=== PATIENT | female | born 2000 | race Caucasian/White ===

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

== ENCOUNTER 2021-09-09 05:56 | Emergency (ER) | payer OTHER, SELFPAY ==
--- NOTE | ~2021-09-09 | XR_ITS ---
EXAMINATION: XR lumbar spine 2-3V DATE: 09/09/2021 07:32 INDICATION: Nontraumatic low back pain. TECHNIQUE: 3 views of lumbar spine were obtained. COMPARISON: None. FINDINGS: Bone alignment is normal. Vertebral body heights and intervertebral disc heights are normal . The facet joints are normal. IMPRESSION: 1. Normal lumbar spine. Reviewed, dictated and finalized at location A. [employer] IMPRESSION: 1. Normal lumbar spine.
[2021-09-09 05:57] VITALS: BP 144/89; PULSE 115; RESP 16; TEMP 36.3; O2SAT 100
[2021-09-09 06:42] VITALS: BP 130/76; PULSE 88; RESP 14; TEMP 36.3; O2SAT 100
--- NOTE | 2021-09-09 08:15 | ED.BACK ---
HPI - Back Pain/Injury General Chief Complaint: Back Pain/Injury Stated Complaint: lower back pain Time Seen by Provider: 09/09/21 07:03 History of Present Illness HPI Narrative: Patient is a 21-year-old female who presents ER with low back pain. Began 2 nights ago while at work. Its in the lumbar region and will move laterally to the paraspinal musculature. It is aching in nature. No saddle anesthesia. Reports last bowel movement yesterday and last urination was couple hours ago. No known trauma. No fevers or chills or sweats. She has been seen at [facility] in the night of initial pain. She had a CT scan of her lumbar spine performed. She reports it was unremarkable and she was discharged home with naproxen. She filled the naproxen yesterday and has been taking it for 24 hours. She reports she has not had complete relief of pain so she sought further care. Related Data Home Medications Medication Instructions Recorded Confirmed naproxen 09/09/21 Allergies Allergy/AdvReac Type Severity Reaction Status Date / Time No Known Allergies Allergy Verified 09/09/21 06:45 Review of Systems Review of Systems: All systems reviewed & are unremarkable except as noted in HPI and below Constitutional: Constitutional: Denies chills and Denies fever(s) Gastrointestinal: Gastrointestinal: Denies abdominal pain, Denies nausea and Denies vomiting Genitourinary: Genitourinary: Denies nocturia, Denies dysuria and Denies urinary incontinence Musculoskeletal: Musculoskeletal: Reports back pain, Denies joint swelling and Reports muscle cramps Neurologic: Denies headache(s), Denies focal weakness and Denies numbness PMFSH Past Medical History Medical History (Updated 09/09/21 @ 08:21 by Faustino Aguayo MD) Polycystic ovarian syndrome Surgical History Surgical History (Updated 09/09/21 @ 08:16 by Faustino Aguayo MD) No history of previous surgery Social History Social History (Updated 04/09/20 @ 18:55 by Fernie Coronado PA-C) Smoking status: Never smoker Exam Narrative: GENERAL: Well-appearing, well-nourished, and in no acute distress. HEAD: Normocephalic, atraumatic. CHEST: Clear to auscultation. No respiratory distress. HEART: Regular rate and rhythm. Normal peripheral pulses. ABDOMEN: Soft, nontender, nondistended. Digital rectal exam with normal rectal tone. No saddle anesthesia when tested with sharp sensation. Back: No reproducible pain in the midline of the thoracic or lumbar spine. No reproduced tenderness in the paraspinal musculature at these levels either. EXTREMITIES: Normal range of motion. No edema. SKIN: Warm, dry, no rash. NEURO: No focal deficits. Alert and oriented x3.. Course Course Emergency Course: Toradol administered for symptomatic relief of pain. Discussed with patient that we will add on muscle relaxers for home. Recommend she establish care with a primary care physician for further evaluation should her symptoms not improve after the duration of therapy that was initiated at [facility]. Vital Signs Vital signs: Vital Signs Temperature 97.4 F L 09/09/21 05:57 Pulse Rate 115 H 09/09/21 05:57 Respiratory Rate 16 09/09/21 05:57 Blood Pressure 144/89 H 09/09/21 05:57 Pulse Oximetry 100 09/09/21 05:57 Temperature 97.4 F L 09/09/21 06:42 Pulse Rate 88 09/09/21 06:42 Respiratory Rate 14 09/09/21 06:42 Blood Pressure 130/76 09/09/21 06:42 Pulse Oximetry 100 09/09/21 06:42 MDM - Back Pain/Injury Imaging Data Radiologist's impression: ITS Impressions Lumbar Spine X-Ray 09/09/21 07:34 IMPRESSION: 1. Normal lumbar spine. Discharge Plan Discharge Clinical Impression: Strain of lumbar region Patient Disposition: Home, Self-Care Condition: Stable Instructions: Lower Back Exercises (ED) Additional Instructions: Return to the ER if you have increased pain in your back, you develop lower extremity weakness
[2021-09-09] MEDS: KETOROLAC (*BKC) 60 MG/2 ML VIAL IM (08:17)
[2021-09-09 08:39] VITALS: BP 117/75; PULSE 87; RESP 16; O2SAT 99
== END 2021-09-09 08:40 | disposition home or self-care (01) ==
PROVIDERS: Emergency Provider Emergency Medicine
DX: E28.2 Polycystic ovarian syndrome (principal); S39.012A Strain of muscle, fascia and tendon of lower back, initial encounter; X58.XXXA Exposure to other specified factors, initial encounter
CPT/HCPCS: 72100; 96372; 99283; J1885

== ENCOUNTER 2022-03-07 21:09 | Emergency (ER) | payer OTHER, SELFPAY ==
--- NOTE | ~2022-03-07 | CT_ITS ---
EXAMINATION: CT abdomen pelvis wo con DATE: 03/07/2022 23:11 INDICATION: Left flank pain. Nausea. TECHNIQUE: Computed tomography (CT) of the abdomen and pelvis was performed without intravenous contr ast. Automated exposure control and iterative reconstruction technique were employed. The dose-length product was 311.36 mGy-cm. COMPARISON: None. FINDINGS: The visualized portions of the lung bases demonstrate mild atelectasis. No pleural effusion . The heart size is normal. No pericardial effusion. There is diffuse hepatic steatosis. The gallblad estela, spleen, pancreas, adrenal glands, and kidneys are normal. There is no urolithiasis. There are no dilated loops of bowel. The appendix is normal. There are no pathologically enlarged lymph nodes. Th ere is no free intraperitoneal fluid. There is mild lumbar spondylosis. IMPRESSION: 1. Diffuse hepatic steatosis. Reviewed, dictated and finalized at location A.
[2022-03-07 21:23] VITALS: BP 140/69; PULSE 81; RESP 18; TEMP 36.4; O2SAT 100
--- NOTE | 2022-03-07 21:38 | ED.ABDPAIN ---
HPI - Abdominal Pain General Chief Complaint: Abdominal Pain Stated Complaint: LLQ pain to left groin Time Seen by Provider: 03/07/22 21:34 History of Present Illness HPI narrative: Patient presenting with some pain in her left flank to her left lower quadrant, she had gone to [place] 2 days ago and had been told it was a urinary tract infection, she was started on cephalexin and has been taking it. Denies any fevers or chills, states that she has some nausea earlier today. No history of kidney stones. States she is not having any vaginal discharge and has no concern for STDs, also states this does not feel like her usual UTI. Related Data Home Medications Medication Instructions Recorded Confirmed naproxen 500 mg tablet 09/09/21 aripiprazole 2 mg tablet tablet 03/07/22 ferrous sulfate 324 mg (65 mg 324 mg PO DAILY 03/07/22 iron) tablet,delayed release multivitamin 1 tablet PO DAILY 03/07/22 sertraline 25 mg tablet tablet 03/07/22 Allergies Allergy/AdvReac Type Severity Reaction Status Date / Time No Known Allergies Allergy Verified 03/07/22 21:30 Review of Systems Review of Systems: CONST: No fever. HEENT: No sore throat C/V: No chest pain RESP: No cough GI: Reports abdominal pain, nausea, vomiting : No dysuria. M/S: No joint pain. SKIN: No rash. NEURO: [No headache or focal numbness or weakness] PSYCH: [No depression] [facility] Past Medical History Medical History Polycystic ovarian syndrome Surgical History Surgical History No history of previous surgery Social History Social History Smoking status: Current every day smoker Exam Narrative: EXAMINATION OF ORGAN SYSTEMS/BODY AREAS: Constitutional: Vital signs per nursing GENERAL:[No acute distress, non-toxic appearing.] HEAD: Normal with no signs of head trauma. EYES: EOMI, conjunctiva normal ENT: Hearing grossly intact LUNGS: Nonlabored breathing. HEART: [Regular rate and rhythm] ABD: [Soft], minimally [tender to palpation left lower quadrant] EXT: Normal range of motion SKIN: [No rashes or lesions.] NEURO: [Alert and oriented x 3. No gross focal sensory or strength deficits.] PSYCH: Normal affect Course Vital Signs Vital signs: Vital Signs Temperature 97.6 F 03/07/22 21:23 Pulse Rate 81 03/07/22 21:23 Respiratory Rate 18 03/07/22 21:23 Blood Pressure 140/69 03/07/22 21:23 Pulse Oximetry 100 03/07/22 21:23 Oxygen Delivery Room Air 03/07/22 21:23 Temperature 98.3 F 03/07/22 22:00 Pulse Rate 78 03/07/22 22:00 Respiratory Rate 16 03/07/22 22:00 Blood Pressure 120/78 03/07/22 22:00 Pulse Oximetry 97 03/07/22 22:00 Oxygen Delivery Room Air 03/07/22 21:23 MDM - Abdominal Pain MDM Narrative Medical decision making narrative: ED COURSE AND MEDICAL DECISION MAKIN-year-old female presenting to the emergency department for left flank pain radiating to front, symptoms are concerning for likely renal colic versus pyelonephritis. Minimal tenderness on palpation left lower quadrant and no CVA tenderness. I did offer pelvic exam but patient declined, she states she has low concern for STDs and no discharge or fevers, so I am less suspicious for possible PID/TOA. Urinalysis is ordered. [Toradol 30mg, Zofran 4mg] are ordered. CT scan of the abdomen/pelvis is ordered. Labs are remarkable for: Some blood in the urine. CT scan of the abdomen/pelvis is reviewed by myself and interpreted by radiology: No obvious kidney stones or other acute abnormality On reevaluation, the patient still having some pain but appears more comfortable. I explained I suspect possible kidney stones though the CT was negative. Patient is strongly advised to return to the emergency department for any increasing pain not improving with medications, persistent nause
[2022-03-07 22:00] VITALS: BP 120/78; PULSE 78; RESP 16; TEMP 36.8; O2SAT 97
[2022-03-07] MEDS: ONDANSETRON HCL ODT 4 MG TABLET PO (22:09)
[2022-03-07 22:49] LABS: Appearance Urine Clear (Clear); Bilirubin Urine Negative (Negative); Blood Urine Negative (Negative); Color Urine Yellow (Yellow); Glucose Urine UA Negative (Negative); Ketones Urine Negative (Negative); Leukocyte Esterase Ur Negative LEU/UL (Negative); Nitrate Urine Negative (Negative); Protein Urine Negative (Negative)
[2022-03-07 22:54] LABS: Bacteria Urine Trace /hpf; Mucus Urine Rare /lpf; Squamous Epithelial Cell Urine Occasional /hpf (Few); WBC Urine 0-3 /hpf
[2022-03-07 22:56] LABS: Add Urine Microscopic? YES
--- NOTE | 2022-03-07 23:22 | PC.NURSE ---
Assuming care of pt.
[2022-03-08] MEDS: KETOROLAC 30 MG/ML VIAL (*BKC) IM (00:16)
[2022-03-08 00:19] VITALS: BP 116/71; PULSE 73; RESP 18; O2SAT 100
== END 2022-03-08 00:50 | disposition home or self-care (01) ==
PROVIDERS: Emergency Provider Emergency Medicine; PCP Internal Medicine Infectious Disease
DX: R10.32 Left lower quadrant pain (principal); E28.2 Polycystic ovarian syndrome; F17.210 Nicotine dependence, cigarettes, uncomplicated; K76.0 Fatty (change of) liver, not elsewhere classified
CPT/HCPCS: 74176; 81001; 81025; 96372; 99284; A9270; J1885

== ENCOUNTER 2022-11-13 21:11 | Emergency (ER) | payer OTHER, SELFPAY ==
--- NOTE | ~2022-11-13 | CT_ITS ---
EXAMINATION: CT abdomen pelvis w con DATE: 11/14/2022 01:15 INDICATION: Left upper quadrant abdominal pain. Abdominal distention. TECHNIQUE: Computed tomography (CT) of the abdomen and pelvis was performed with 100 mL Omnipaque 350 intravenous contrast. Automated exposure control and iterative reconstruction technique were employe d. The dose-length product was 1027.22 mGy-cm. COMPARISON: CT abdomen and pelvis 03/07/2022 FINDINGS: The visualized portions of the lung bases demonstrate mild atelectasis. No pleural effusion . The heart size is normal. No pericardial effusion. There is diffuse hepatic steatosis. The gallblad estela, spleen, pancreas, adrenal glands, and kidneys are normal. There are no dilated loops of bowel. T he appendix is normal. There is mild mesenteric lymphadenopathy. There is a 5.2 x 2.4 cm multiloculat ed cystic mass in left ovary. There is no free intraperitoneal fluid. There are benign bone islands i n the pelvis. IMPRESSION: 1. Mild mesenteric lymphadenopathy, likely reactive. 2. 5.2 cm cystic mass in left ovary, probably benign. Pelvis ultrasound is recommended. 3. Diffuse hepatic steatosis. Reviewed, dictated and finalized at location A. 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 Mild mesenteric lymphadenopathy, likely reactive. 2. 5.2 cm cystic mass in left ovary, probably benign. Pelvis ultrasound is sharon mmended. 3. Diffuse hepatic steatosis.
[2022-11-13 21:11] VITALS: BP 147/89; PULSE 105; RESP 18; TEMP 37; O2SAT 100
[2022-11-13 21:27] LABS: Basophils Percent Auto 0.5 % (0.2-1.2); Eosinophils Absolute Auto 0.2 K/mm3 (0-0.3); Hematocrit 40.3 % (37.0-47.0); Hemoglobin 13.3 g/dL (12.0-15.0); Immature Granulocyte Absolute 0.03 K/mm3 (0.00-0.031); Immature Granulocyte Percent A 0.4 % (0-0.5); Lymphocytes Absolute Auto 2.82 K/mm3 (0.9-3.2); Lymphocytes Percent Auto 37.9 % (18.3-44.2); Mean Corpuscular Hemoglobin 28.7 pg (26-34); Mean Platelet Volume 9.5 fl (7.4-10.4); Monocytes Absolute Auto 0.5 K/mm3 (0.1-0.6); Monocytes Percent Auto 6.4 % (2.6-8.5); Neutrophils Absolute Auto 3.9 K/mm3 (1.3-6.7); Neutrophils Percent Auto 51.8 % (45.5-73.1); Platelet Count Result 323 k/mm3 (150-375); Red Blood Count 4.63 M/mm3 (4.2-5.4); Red Cell Distribution Width 12.8 % (11.5-14.5); White Blood Count 7.5 K/mm3 (4.5-10.0)
[2022-11-13 21:36] LABS: Alanine Aminotransferase 56 U/L (6-35); Albumin Level 4.5 g/dL (3.5-5.1); Alkaline Phosphatase 76 U/L (38-126); Anion Gap 6 mmol/L (8-16); Aspartate Amino Transferase 50 U/L (14-36); Bilirubin,Total 0.3 mg/dL (0.2-1.3); Blood Urea Nitrogen 9 mg/dL (7-17); Calcium 8.9 mg/dL (8.4-10.2); Carbon Dioxide 29 mmol/L (22-30); Chloride 104 mmol/L (98-107); Estimated CRCL calculation 75 ml/min; Estimated Glomerular Filt Rate 57; Glucose 125 mg/dL (65-110); Lipase 209 U/L (23-300); Potassium 3.7 mmol/L (3.4-5.0); Sodium 139 mmol/L (137-145)
[2022-11-13 21:42] LABS: Appearance Urine Clear (Clear); Bilirubin Urine Negative (Negative); Blood Urine Negative (Negative); Color Urine Light Yellow (Yellow); Glucose Urine UA Negative (Negative); Ketones Urine Negative (Negative); Leukocyte Esterase Ur Negative LEU/UL (Negative); Nitrate Urine Negative (Negative); Protein Urine Negative (Negative); Specific Grav Ur 1.015 (1.001-1.035); Urobilinogen Urine 0.2 mg/dL (<2.0)
[2022-11-13 21:45] LABS: Add Urine Microscopic? NO
[2022-11-13 23:31] VITALS: BP 116/70
[2022-11-13 23:46] VITALS: BP 134/88; PULSE 78; RESP 14; O2SAT 97
[2022-11-14] VITALS: BP 136/78; PULSE 81; RESP 18; O2SAT 97
[2022-11-14 00:01] VITALS: BP 128/61
[2022-11-14 00:16] VITALS: BP 134/67
[2022-11-14] MEDS: HYDROcodone/acetaminophen (*CRX) 7.5-325 MG TABLET 1 TAB PO (00:26)
[2022-11-14] MEDS: ONDANSETRON HCL ODT 4 MG TABLET PO (00:26)
[2022-11-14 00:46] VITALS: BP 125/80; PULSE 66; RESP 19; O2SAT 99
--- NOTE | 2022-11-14 02:42 | ED.ABDPAIN ---
HPI - Abdominal Pain General Chief Complaint: Abdominal Pain <Saad Ayala PA-C - Last Filed: 11/14/22 03:58> Stated Complaint: abdominal pain <Saad Ayala PA-C - Last Filed: 11/14/22 03:58> Time Seen by Provider: 11/13/22 23:23 <Saad Ayala PA-C - Last Filed: 11/14/22 03:58> History of Present Illness HPI narrative: This is a 22-year-old female with PMH of PCOS presents with chief complaint of abdominal pain and bloating x3 days. Also reports some nausea but no vomiting. Reports the pain is located in the upper abdomen, generalized. Reports 4 out of 10 pain here in the ED, that occasionally worsens to about a 7. She is unsure what brought the pain on, but states that there is some increased pain whenever she eats. No changes in diet recently. Patient states she often has bloating and relates this to her PCOS but was concerned today because the bloating is more in the upper abdomen rather than lower. Denies fevers, chills, shortness of breath, chest pain, headache, syncope, diarrhea. She has had regular bowel movements every day. No surgical abdominal history Her periods are regular with PCOS. Last menstrual period was several months ago. <Saad Ayala PA-C - Last Filed: 11/14/22 03:58> Related Data Home Medications: Home Medications Medication Instructions Recorded Confirmed naproxen 500 mg tablet 09/09/21 aripiprazole 2 mg tablet tablet 03/07/22 ferrous sulfate 324 mg (65 mg 324 mg PO DAILY 03/07/22 iron) tablet,delayed release multivitamin 1 tablet PO DAILY 03/07/22 sertraline 25 mg tablet tablet 03/07/22 <EWA James Last Filed: 11/14/22 03:58> Allergies/Adverse Reactions: Allergies Allergy/AdvReac Type Severity Reaction Status Date / Time No Known Allergies Allergy Verified 11/13/22 23:10 <EWA James Last Filed: 11/14/22 03:58> Review of Systems Review of Systems: CONSTITUTIONAL: Denies fever, chills, or sweats. EYES: Denies visual changes, redness, or discharge. ENT: Denies rhinorrhea, congestion, sore throat, or otalgia. CARDIOVASCULAR: Denies chest pain, palpitations, or edema. RESPIRATORY: Denies cough or dyspnea. GASTROINTESTINAL: Endorses abdominal pain, nausea. Endorses abdominal distention. Denies vomiting or diarrhea. GENITOURINARY: Denies dysuria or hematuria. SKIN: Denies rash or itching. MUSCULOSKELETAL: Denies back pain, joint pain, or myalgia. NEUROLOGIC: Denies headache, numbness, dizziness, or weakness. PSYCHIATRIC: Denies anxiety or depression. <Saad Ayala PA-C - Last Filed: 11/14/22 03:58> [facility] Past Medical History Medical History: Medical History Polycystic ovarian syndrome <Saad Ayala PA-C - Last Filed: 11/14/22 03:58> Surgical History Surgical History: Surgical History No history of previous surgery <Saad Ayala PA-C - Last Filed: 11/14/22 03:58> Social History Social History: Social History Smoking status: Current every day smoker <Saad Ayala PA-C - Last Filed: 11/14/22 03:58> Exam Narrative: GENERAL: Well-appearing, well-nourished, and in no acute distress. HEAD: Normocephalic, atraumatic. EYES: PERRLA and EOMI. ENT: Nares clear, no rhinorrhea or epistaxis. Mucous membranes moist. Oropharynx without tonsillar hypertrophy exudate or other lesions. NECK: Supple. No adenopathy or masses. CHEST: No respiratory distress. Clear to auscultation. No wheezes rales or rhonchi HEART: Regular rate and rhythm. No murmur heard. Normal peripheral pulses. ABDOMEN: Soft, normal active bowel sounds. Mild tenderness to palpation in epigastrium and left upper quadrant. There is also some tenderness in the right lower quadrant. Moderate distention is present. Negative peritoneal signs. Negative Reeves sign. EXTREMITIES: N
[2022-11-14 03:00] VITALS: BP 127/72; PULSE 100; RESP 14; O2SAT 97
[2022-11-14 04:01] VITALS: BP 129/77; PULSE 88; RESP 19; O2SAT 99
== END 2022-11-14 04:54 | disposition home or self-care (01) ==
PROVIDERS: Emergency Provider Emergency Medicine
DX: I88.0 Nonspecific mesenteric lymphadenitis (principal); R10.84 Generalized abdominal pain; E28.2 Polycystic ovarian syndrome; K76.0 Fatty (change of) liver, not elsewhere classified; N83.8 Other noninflammatory disorders of ovary, fallopian tube and broad ligament
CPT/HCPCS: 36415; 74177; 80053; 81003; 81025; 83690; 85025; 99284; A9270; Q9967

== ENCOUNTER 2023-06-06 22:31 | Emergency (ER) | payer OTHER, SELFPAY ==
[2023-06-06 23:14] VITALS: BP 126/67; PULSE 87; RESP 16; TEMP 36.4; O2SAT 97
--- NOTE | 2023-06-07 04:23 | PC.NURSE ---
Patient was called in waiting room at 0412 and 0422 and no answer either time
== END 2023-06-07 04:41 | disposition left against medical advice (07) ==
LOC: ANHED 06-07 04:21
DX: L55.9 Sunburn, unspecified (principal)
CPT/HCPCS: 99199

== ENCOUNTER 2024-08-14 17:18 | Emergency (ER) | payer OTHER, SELFPAY ==
[2024-08-14 17:45] VITALS: BP 170/67; PULSE 81; RESP 18; TEMP 36.4; O2SAT 100
--- NOTE | 2024-08-14 19:18 | ED_ITS ---
HPI - General Adult General Chief complaint: Unspecified Stated complaint: reaction to meds - vag bleeding and rash Time Seen by Provider: 08/14/24 19:14 Source: patient Mode of arrival: ambulatory Limitations: no limitations History of Present Illness HPI narrative: Patient is a 24-year-old female who presents to the ED with report of facial flushing and abnormal vaginal bleeding. Patient reports she was started on methylprednisolone and methocarbamol 4 days ago for a lower back strain. Since yesterday, she has been having intermittent flushing of her face. States it feels like a burning sensation to her face. Denies ever taking these medications before. Denies any rash or itching. Denies difficulty breathing or swelling, sensation of throat swelling or closing. Denies nausea, vomiting. She does admit to increased vaginal bleeding and states her cycle began earlier than it was scheduled to. She does have irregular cycles. Hx PCOS. Is not on any control. Does not believe there is any chance of . Reports intermittent lower abdominal cramping. Has not taken anything for pain. Denies hematuria or dysuria. Related Data Home Medications Medication Instructions Recorded Confirmed naproxen 500 mg tablet 09/09/21 aripiprazole 2 mg tablet tablet 03/07/22 ferrous sulfate 324 mg (65 mg 324 mg PO DAILY 03/07/22 iron) tablet,delayed release multivitamin 1 tablet PO DAILY 03/07/22 sertraline 25 mg tablet tablet 03/07/22 Allergies Allergy/AdvReac Type Severity Reaction Status Date / Time No Known Allergies Allergy Verified 06/06/23 23:20 Review of Systems Review of Systems: All systems reviewed & are unremarkable except as noted in HPI. All systems reviewed & are unremarkable except as noted in HPI and below PMFSH Past Medical History Medical History Polycystic ovarian syndrome Surgical History Surgical History No history of previous surgery Social History Social History Smoking status: Current every day smoker Exam Narrative: GENERAL: Well appearing, obese with BMI of 36.7, non-toxic, in no acute distress. HEAD: Normocephalic, atraumatic. RESPIRATORY: Airway patent, respirations nonlabored. No stridor distress. CARDIOVASCULAR: Regular rate and rhythm MUSCULOSKELETAL: Moves all extremities. No gross deformities. SKIN: Warm, dry, mild flushed appearance to face diffusely. No other rash or urticaria. NEURO: A&O X3. Speech clear. Cranial nerves II-XII grossly intact. Steady gait. No ataxic movements. PSYCHIATRIC: Appropriate mood and affect. Normal interaction. Course Vital Signs Vital signs: Vital Signs Temperature 97.6 F 08/14/24 17:45 Pulse Rate 81 08/14/24 17:45 Respiratory Rate 18 08/14/24 17:45 Blood Pressure 170/67 H 08/14/24 17:45 Pulse Oximetry 100 08/14/24 17:45 Oxygen Delivery Room Air 08/14/24 17:45 Temperature 97.8 F 08/14/24 20:10 Pulse Rate 83 08/14/24 20:10 Respiratory Rate 18 08/14/24 20:10 Blood Pressure 157/83 H 08/14/24 20:10 Pulse Oximetry 99 08/14/24 20:10 Oxygen Delivery Room Air 08/14/24 20:10 Medical Decision Making MDM Narrative Medical decision making narrative: Patient presented to ED with possible allergic reaction from recently being started on methylprednisolone and methocarbamol. Reports facial flushing. Also reports abnormal vaginal bleeding. Does have irregular cycles. Patient given Benadryl and ibuprofen in the ED. She did report improvement of flashing sensation. Likely side-effect from methylprednisolone. Advised to stop both medications as we are unsure exactly which would have caused the reaction. She was prescribed the medications for a lower back strain. Will prescribe Flexeril instead. She does report persistent pain. Advised to continue anti- inflammatories. Urinalysis here with lots of blood. Does show 51-100 WBC. Discussed this with patient. She denies any recent symptoms of UTI. Will send for culture. Patient would prefer to wait for culture results to determine need for antibiotic treatment. Do feel this is appropriate. Offered to perform pelvic exam however patient declined. Recommended follow-up with door core assembler for further evaluation. Given strict return precautions. Discussed signs and symptoms of more serious allergic reactions/ anaphylaxis. Patient voiced understanding. Discharged in stable condition. Medical Records Medical records reviewed: Yes I reviewed the external patient's medical records. Vital Signs Vital Signs: Vital Signs Temperature 97.6 F 08/14/24 17:45 Pulse Rate 81 08/14/24 17:45 Respiratory Rate 18 08/14/24 17:45 Blood Pressure 170/67 H 08/14/24 17:45 Pulse Oximetry 100 08/14/24 17:45 Oxygen Delivery Room Air 08/14/24 17:45 Temperature 97.8 F 08/14/24 20:10 Pulse Rate 83 08/14/24 20:10 Respiratory Rate 18 08/14/24 20:10 Blood Pressure 157/83 H 08/14/24 20:10 Pulse Oximetry 99 08/14/24 20:10 Oxygen Delivery Room Air 08/14/24 20:10 Lab Data Lab results reviewed: Yes I reviewed the patient's lab results. Labs: Lab Results 08/14/24 08/14/24 Range/Units 19:50 19:53 Urine Color Red H (Yellow) Urine Appearance Cloudy H (Clear) Urine pH 7.0 (5.0-9.0) Ur Specific [place] 1.018 (1.001-1.035) Urine Protein 2+ H (Negative) mg/dL Urine Glucose (UA) Negative (Negative) mg/dL Urine Ketones Negative (Negative) mg/dL Ur Blood (Man) 3+ H (Negative) Urine Nitrate Negative (Negative) Urine Bilirubin Negative (Negative) Urine Urobilinogen 0.2 (<2.0) mg/dL Add Ur Microanalysis Reviewed Leukocyte Esterase Rfl Trace H (Negative) MELISA/UL Urine RBC >100 H (0-2) /hpf Urine WBC 51-100 H (0-3) /hpf Ur Squamous Epith Cells Occasional (Few) /hpf Urine Bacteria Rare /hpf Urine Casts 0-2 POC Urine HCG, Qual Negative (Negative) Discharge Plan Discharge Clinical Impression: Dysfunctional uterine bleeding, Facial flushing Patient Disposition: Home, Self-Care Condition: Stable Instructions: Antibiotic Form, Abnormal (Dysfunctional) Uterine Bleeding (ED), General Allergic Reaction (ED) Additional Instructions: Avoid further use of methylprednisolone or methocarbamol. You may use Flexeril as needed for lower back pain. Continue Tylenol and ibuprofen as needed for pain. Continue Benadryl and/or pepcid, claritin, or zrytec as needed for facial flushing. Return to the ED if you experience worsening or severe symptoms, severe pain, difficulty breathing or swallowing, diffuse rash or hives, or any other symptoms of concern. Your urine is being sent for culture. Follow-up with your primary care doctor or OBGYN for evaluation of this. Prescriptions: New cyclobenzaprine 5 mg tablet 5 mg PO TID PRN (Reason: muscle spasm) Qty: 10 0RF No Action doxycycline hyclate 100 mg tablet 100 mg PO BID 10 Days Qty: 20 0RF naproxen 500 mg tablet cyclobenzaprine 10 mg tablet 10 mg PO TID PRN (Reason: muscle spasm) Qty: 20 0RF multivitamin [A To Z Multivitamin] Tablet 1 tablet PO DAILY sertraline 25 mg tablet aripiprazole 2 mg tablet ferrous sulfate 324 mg (65 mg iron) Tablet,Delayed Release (Dr/Ec) 324 mg PO DAILY ondansetron 4 mg tablet,disintegrating 4 mg PO Q8H PRN (Reason: nausea and vomiting) Qty: 10 0RF ibuprofen 400 mg tablet 400 mg PO Q6H Qty: 20 0RF Follow-up/Referrals: Adriel Romero MD [Physician] - (PRIMARY CARE) Debbie Jean MD [Physician] - (OBGYN) PHYSICIAN,SAFETY SCIENTIST [Primary Care Provider] - Time of Disposition: 21:12
[2024-08-14] MEDS: IBUPROFEN 600 MG TABLET PO (19:45)
[2024-08-14] MEDS: diphenhydrAMINE HCl CAP 25 MG CAPSULE PO (19:45)
[2024-08-14 19:54] LABS: BEDSIDEPREGUCG Negative (Negative)
[2024-08-14 20:10] VITALS: BP 157/83; PULSE 83; RESP 18; TEMP 36.6; O2SAT 99
[2024-08-14 20:23] LABS: Add Urine Microscopic? YES; Bacteria Urine Rare /hpf; Bilirubin Urine Negative (Negative); Blood Urine 3+ (Negative); Glucose Urine UA Negative (Negative); Ketones Urine Negative (Negative); Leukocyte Esterase Ur Trace LEU/UL (Negative); Need Manual Microscopic Reviewed; Nitrate Urine Negative (Negative); Non Pathogenic Casts 0-2; Protein Urine 2+ mg/dL (Negative); RBC Urine >100 /hpf (0-2); Specific Grav Ur 1.018 (1.001-1.035); Squamous Epithelial Cell Urine Occasional /hpf (Few); Urobilinogen Urine 0.2 mg/dL (<2.0); WBC Urine 51-100 /hpf (0-3)
[2024-08-14 20:24] LABS: Appearance Urine Cloudy (Clear); Color Urine Red (Yellow)
== END 2024-08-14 21:16 | disposition home or self-care (01) ==
PROVIDERS: Emergency Provider Physician Assistant
DX: N93.8 Other specified abnormal uterine and vaginal bleeding (principal); R23.2 Flushing; F17.200 Nicotine dependence, unspecified, uncomplicated
CPT/HCPCS: 81001; 81025; 99283; A9270

== ENCOUNTER 2024-09-01 09:08 | Outpatient (CLI) | payer OTHER, SELFPAY ==
--- NOTE | ~2024-09-01 | XR_ITS ---
Thoracic spine: Clinical Indication: Back pain AP and lateral views were performed. No fracture is seen. There is normal alignment of the vertebrae. The intervertebral disc spaces appe ar normal. Paravertebral soft tissues appear normal. Impression: No significant abnormalities noted. Reviewed, dictated and finalized at [facility]. STRIPPER FINAL Impression: No significant abnormalities noted.
--- NOTE | ~2024-09-01 | XR_ITS ---
Lumbosacral Spine: AP and lateral views Clinical History: Pain Findings: The normal lordotic curve is maintained. The vertebral bodies and posterior elements are i ntact. The intervertebral disc spaces are preserved. The sacroiliac joints are normally outlined. Impression: No significant abnormality. Reviewed, dictated and finalized at [facility]. T SORTER Impression: No significant abnormality.
[2024-09-01 09:49] LABS: Hematocrit 42.7 % (37.0-47.0); Hemoglobin 13.7 g/dL (12.0-15.0); Mean Corpuscular HGB Conc 32.1 g/dl (32-36); Mean Corpuscular Hemoglobin 26.7 pg (26-34); Mean Corpuscular Volume 83.2 fl (80-100); Mean Platelet Volume 9.8 fl (7.4-10.4); Platelet Count Result 382 k/mm3 (150-375); Red Blood Count 5.13 M/mm3 (4.2-5.4); Red Cell Distribution Width 12.8 % (11.5-14.5); White Blood Count 5.6 K/mm3 (4.5-10.0)
[2024-09-01 10:01] LABS: Alanine Aminotransferase 51 U/L (6-35); Albumin Level 4.7 g/dL (3.5-5.1); Alkaline Phosphatase 94 U/L (38-126); Anion Gap 8 mmol/L (4-12); Aspartate Amino Transferase 46 U/L (14-36); Bilirubin,Total 0.6 mg/dL (0.2-1.3); Blood Urea Nitrogen 7 mg/dL (7-17); Calcium 9.4 mg/dL (8.4-10.2); Carbon Dioxide 25 mmol/L (22-30); Chloride 106 mmol/L (98-107); Cholesterol 204 mg/dL (0-200); Estimated Glomerular Filt Rate > 60; Glucose 110 mg/dL (65-110); HDL Direct 36 mg/dL; Potassium 4.1 mmol/L (3.4-5.0); Sodium 139 mmol/L (137-145); Triglycerides 222 mg/dL (<150)
[2024-09-01 10:04] LABS: Hemoglobin A1C 5.6 % (<5.7)
[2024-09-01 10:08] LABS: Add Urine Microscopic? YES; Appearance Urine Cloudy (Clear); Bacteria Urine 3+ /hpf; Bilirubin Urine Negative (Negative); Blood Urine Negative (Negative); Color Urine Yellow (Yellow); Glucose Urine UA Negative (Negative); Ketones Urine Negative (Negative); Leukocyte Esterase Ur Negative LEU/UL (Negative); Need Manual Microscopic Reviewed; Nitrate Urine Negative (Negative); Protein Urine Trace mg/dL (Negative); Specific Grav Ur 1.024 (1.001-1.035); Squamous Epithelial Cell Urine Moderate /hpf (Few); Urobilinogen Urine 0.2 mg/dL (<2.0); WBC Urine 0-5 /hpf (0-3); pH Urine 5.5 (5.0-9.0)
[2024-09-01 10:12] LABS: LDL Cholesterol Direct 122 mg/dL
[2024-09-04 06:24] LABS: Anti Nuclear Antibody Pattern Nuclear, Speckled
== END 2024-09-01 09:09 | disposition home or self-care (01) ==
PROVIDERS: PCP Nurse Practitioner Family; Visit Provider Nurse Practitioner Family
DX: M54.9 Dorsalgia, unspecified (principal); E78.5 Hyperlipidemia, unspecified; Z00.00 Encounter for general adult medical examination without abnormal findings; Z68.36 Body mass index [BMI] 36.0-36.9, adult; Z76.89 Persons encountering health services in other specified circumstances; Z13.29 Encounter for screening for other suspected endocrine disorder; Z13.1 Encounter for screening for diabetes mellitus
CPT/HCPCS: 36415; 72070; 72100; 80053; 80061; 81001; 83036; 84443; 85027; 86038; 86039; 87086

== ENCOUNTER 2024-12-12 10:58 | Outpatient (CLI) | payer OTHER, SELFPAY ==
--- OUTSIDE RECORDS SUMMARY | 2024-12-12 11:46 | XMS_ITS | Patient Health Record ---
Author Organization [facility] Address [address] [place] [address] Support Name Relationship Address Phone Andre Norton Emergency Contact Unknown Unavailab le Sarah Gaona Guarantor Unknown [phone] Allergies No Known Allergies Reason For Referral No Information Medications Medication SIG (Take, Route, Frequency, Duration) Notes Start Date End Date Status Propranolol HCl 20 MG TAKE 1 TABLET BY M OUTH TWICE DAILY NEEDED for 90 Active Provera 5 MG 2 tablets with food Orally Once a day for 30 day(s) Not-Osvaldo ing ARIPiprazole 10 MG TAKE 1 TABLET BY ROGELIO EVERY DAY for 30 Active Multi Vitamin Daily - 1 tablet Orally On ce a day for 30 day(s) Not-Taking Vitamin D 1000 UNIT 1 tablet Orally Once a day for 30 day(s) Not-Taking Sertraline HCl 50 MG TAKE 1 TABLET BY MO [facility] EVERY DAY for 30 Active Iron 325 (65 Fe) MG 1 tablet Orally Once a day for 30 day(s) Not-Taking Social History Tobacco Use: Social History Observation Description Date Details (start date - stop date) Current Smoker NA - NA Sex Assigned At : Social History Observation Description Sex Assigned At Female Dont use, Tobacco Use/Smoking Question Answer Notes Are you a current smoker Additional Findings: Tobacco User e-Cigarette Section Notes: Currently lives with her ruthie nce Currently lives with her ruthie nce Currently lives with her ruthie nce Currently lives with her ruthie nce Currently lives with her ruthie nce Currently lives with her ruthie nce Problems Problem Type SNOMED Code ICD Code Onset Dates Problem Status W/U Status Risk Notes Problem 40071757 Mood disorder (F39) Active confirmed Problem Social anxiety disorder (89965663) Social anxiety disorder (F40.10) Active confirmed Problem Major depressive disorder (966942951) Major depressive disorder (F32.9) Active confirmed Plan Of Treatment No Information Insurance Providers Payer Name Payer Address Payer Phone Subscriber Number Group Number Insured Name Patient Relationship to Insured Coverage Start Date Coverage End Date [email or web address] [facility] Attn Claims Department [address] [place] [phone] [id number] Sarah Gaona Self - patient is the insured 2 [facility] [employer] Att[facility] Claims Department [address] [place] [phone] [id number] Sarah Gaona Self - patient is the insured 2 [facility] [employer] Attn Claims Department [address] [place] [id number] [id number] Sarah Gaona Self - patient is the insured 2 Medical (General) History Medical History History ICD Code PCOS possible DM Surgical History Surgery Date(Month/Year) tonsils/adnoids age 8
[2024-12-12 11:55] LABS: Alanine Aminotransferase 61 U/L (6-35); Albumin Level 4.9 g/dL (3.5-5.1); Alkaline Phosphatase 101 U/L (38-126); Aspartate Amino Transferase 47 U/L (14-36); Bilirubin,Total 0.8 mg/dL (0.2-1.3); Cholesterol 203 mg/dL (0-200); HDL Direct 38 mg/dL; Triglycerides 192 mg/dL (<150)
[2024-12-12 12:06] LABS: LDL Cholesterol Direct 117 mg/dL
== END 2024-12-12 10:59 | disposition home or self-care (01) ==
LOC: ANHLAB 10:59
PROVIDERS: PCP Nurse Practitioner Family; Visit Provider Nurse Practitioner Family
DX: R74.8 Abnormal levels of other serum enzymes (principal); E78.5 Hyperlipidemia, unspecified
CPT/HCPCS: 36415; 80061; 80076

== ENCOUNTER 2025-01-08 08:01 | Outpatient (CLI) | payer OTHER, SELFPAY ==
--- NOTE | ~2025-01-08 | US_ITS ---
Limited Abdominal Sonogram: Real-time sonographic imaging of the right upper quadrant was performed. Clinical History: Abnormal serum enzyme levels Findings: The liver appears echogenic, with no evidence of mass lesion or bile duct dilatation. Main portal vein demonstrates normal direction of flow. The gallbladder is well distended, and appears no rmal with no evidence of gallstone or wall thickening. The common bile duct measures 2 mm. The visua lized pancreas, aorta, and IVC are unremarkable. Impression: Diffuse fatty infiltration of liver. Reviewed, dictated and finalized at location M. Impression: Diffuse fatty infiltration of liver.
--- OUTSIDE RECORDS SUMMARY | 2025-01-08 08:00 | XMS_ITS | Patient Health Record ---
Author Organization [facility] Address [address] [place] [address] Support Name Relationship Address Phone Andre Norton Emergency Contact Unknown Unavailab le Sarah Gaona Guarantor Unknown Allergies No Known Allergies Reason For Referral [...] 50 MG TAKE 1 TABLET BY MO [facility] EVERY DAY for 30 Active Iron 325 [...] Problem Status W/U Status Risk Notes Problem [id number] Mood disorder (F39) Active confirmed Problem Social anxiety disorder (22178330) Social anxiety disorder (F40.10) Active confirmed Problem Major depressive disorder (428162449) Major depressive disorder (F32.9) Active confirmed Plan Of Treatment No Information Insurance Providers Payer Name Payer Address Payer Phone Subscriber Number Group Number Insured Name Patient Relationship to Insured Coverage Start Date Coverage End Date [employer] [facility] Attn Claims Department [address] [place] [phone] [id number] Sarah Gaona Self - patient is the insured 2 [facility] Att[facility] Claims Department [address] [place] [id number] [phone] [phone] Sarah Gaona Self - patient is the insured 2 [facility] [employer] Attn Claims Department [address] [place] [id number] [phone] [id number] Sarah Gaona Self - patient is the insured 2 Medical (General) History Medical History History ICD Code PCOS possible DM Surgical History Surgery Date(Month/Year) tonsils/adnoids age 8
[2025-01-08 11:05] LABS: Hepatitis B Surface Antigen Negative (Negative)
[2025-01-08 11:22] LABS: Hepatitis C Virus Antibody Negative (Negative)
[2025-01-08 16:09] LABS: Iron 126 ug/dL (37-170)
[2025-01-08 16:23] LABS: Percent Iron Saturation 29 % (20-50)
[2025-01-08 21:12] LABS: HAV RESULT Negative (Negative); Hepatitis B Core IgM Result Negative (Negative)
== END 2025-01-08 08:02 | disposition home or self-care (01) ==
PROVIDERS: PCP Nurse Practitioner Family; Visit Provider Nurse Practitioner Family
DX: R74.8 Abnormal levels of other serum enzymes (principal); K76.0 Fatty (change of) liver, not elsewhere classified
CPT/HCPCS: 36415; 76705; 80074; 82728; 83540; 83550